=== PATIENT | female | born 2005 | race Caucasian/White ===

== ENCOUNTER 2024-02-19 21:14 | Emergency (ER) | payer OTHER, SELFPAY ==
[2024-02-19 21:31] VITALS: BP 116/77; PULSE 85; RESP 18; TEMP 36.8; O2SAT 99; BMI 30.1
[2024-02-19 21:58] LABS: Strep Grp A by PCR Rapid Positive (Negative)
--- NOTE | 2024-02-19 22:27 | ED.GENADULT ---
HPI - General Adult General Chief complaint: Upper Respiratory Symptoms Stated complaint: thinks she has strep Time Seen by Provider: 02/19/24 21:32 Source: patient Mode of arrival: Ambulatory History of Present Illness HPI narrative: Patient is a 19-year-old female here for evaluation of approximately 24 hours of a sore throat. It hurts for her to swallow. No fevers. No problems breathing. States that today she noticed some white patches in the back of her throat. No skin rashes. Has not tried anything for symptoms prior to arrival. Related Data Allergies Allergy/AdvReac Type Severity Reaction Status Date / Time fluoxetine [From Prozac] Allergy Hives Verified 02/19/24 21:31 Review of Systems Review of Systems Narrative: See HPI Patient History Social History Smoking Status: Current every day smoker Smoking Status: Current every day smoker tobacco type: vaping Substance Use Type: marijuana Exam Initial Vital Signs Initial Vital Signs: Vital Signs Temperature 98.2 F 02/19/24 21:31 Pulse Rate 85 02/19/24 21:31 Respiratory Rate 18 02/19/24 21:31 Blood Pressure 116/77 02/19/24 21:31 Pulse Oximetry 99 02/19/24 21:31 Oxygen Delivery Method Room Air 02/19/24 21:31 HENMT Head: normal to inspection and normocephalic Mouth: moist mucous membranes Throat: posterior oropharynx abnormal edema, erythema and exudates Resp Effort & Inspection: normal respiratory effort Skin General: no rashes or lesions noted Course Orders Ordered: ED Orders 02/19/24 21:35 Strep Grp A by PCR Rapid Stat Discontinued Medications Penicillin G Benzathine (Penicillin G Benzathine 1,200,000 Unit/2 Ml Syringe) 1,200,000 unit IM NOW ONE Stop: 02/19/24 22:28 Last Admin: 02/19/24 22:43 Dose: 1,200,000 unit Documented By: GISELLA Vital Signs Vital signs: Vital Signs - 8 hr 02/19/24 21:31 Temperature 98.2 F Pulse Rate 85 Respiratory Rate 18 Blood Pressure 116/77 Pulse Oximetry 99 Oxygen Delivery Method Room Air Medical Decision Making Lab Data Lab results reviewed: Yes I reviewed the patient's lab results. Labs: Lab Results 02/19/24 Range/Units 21:35 Group A Strep (PCR) Positive H (Negative) Point of Care Testing Test Results Negative Urine Dip Bedside Urine Glucose Negative Bedside Urine Bilirubin - Negative Bedside Urine Ketone - Negative Urine Specific [place] 1.025 Bedside Urine Occult Blood - Negative Bedside Urine pH 6 Bedside Urine Protein - Negative Bedside Urine Urobilinogen - Negative Bedside Urine Nitrite - Negative Bedside Urine Leukocytes - Negative Esterase Point of care testing: Point of Care Testing Test Results Negative Urine Dip Bedside Urine Glucose Negative Bedside Urine Bilirubin - Negative Bedside Urine Ketone - Negative Urine Specific [place] 1.025 Bedside Urine Occult Blood - Negative Bedside Urine pH 6 Bedside Urine Protein - Negative Bedside Urine Urobilinogen - Negative Bedside Urine Nitrite - Negative Bedside Urine Leukocytes - Negative Esterase MDM Narrative Medical decision making narrative: Rapid strep positive. Physical exam is not consistent with peritonsillar abscess/retropharyngeal abscess. Offered patient oral antibiotics versus IM antibiotics. She opted for the intramuscular injection. We discussed use of Tylenol and ibuprofen other [id number] medications tried to help with her symptoms. She was given return precautions. She expressed understanding agreement. Discharge Plan Departure Patient Disposition: Home Clinical Impression: Acute streptococcal pharyngitis Instructions: DI for Strep Throat Activity Restrictions/Additional Instructions: you can take Tylenol and/or ibuprofen for discomfort. Be sure that you were increasing your fluid intake. I would expect some improvement in your symptoms over the next 24 hours. Return to the emergency department for new or worsening symptoms. Stand Alone Forms: Patient Portal/API
[2024-02-19] MEDS: PENICILLIN G BENZATHINE 1,200,000 UNIT/2 ML SYRINGE 1200000 UNIT IM (22:43)
== END 2024-02-19 22:51 | disposition home or self-care (01) ==
PROVIDERS: Emergency Provider Emergency Medicine
DX: J02.0 Streptococcal pharyngitis (principal)
CPT/HCPCS: 81003; 81025; 87651; 96372; 99283; J0561